=== PATIENT | male | born 1950 | race Caucasian/White ===

== ENCOUNTER → 2018-07-08 | Day surgery (SDC) | payer OTHER | LOC: JASU-ENDO 07:09 ==

== ENCOUNTER 2018-12-16 07:58 | Day surgery (SDC) | payer OTHER ==
[2018-12-15 15:39] VITALS: BMI 34.0
[2018-12-16 09:46] VITALS: TEMP 97.4
[2018-12-16 11:17] LABS: BASO % 0.5 % (0-2.0); HEMATOCRIT 38.7 % (35.4-49); HEMOGLOBIN 12.9 GM/dL (11.7-16.9); LYMPH % 17.5 % (8-40); MCH 31.2 pg (25.7-33.7); MCHC 33.3 g/dl (32.0-35.9); MEAN CELL VOLUME 93.6 fl (80-96); MEAN PLT VOLUME 11.3 fl (7.5-11.1); MONO % 5.5 % (3.8-10.2); NEUT % 75.5 % (42.8-82.8); PLATELET COUNT 176 K/MM3 (134-434); RBC 4.14 M/mm3 (4.00-5.60); RDW 14.2 % (11.9-15.9); WHITE BLOOD COUNT 7.5 K/mm3 (4.0-10.0)
[2018-12-16 11:40] LABS: IRON SERUM 111 ug/dL (50-175); TOTAL IRON BINDING CAPACITY 296 ug/dL (250-450)
[2018-12-17 08:49] VITALS: BP 128/69; PULSE 83
--- NOTE | 2018-12-18 15:34 | PATH ---
Surgical Pathology Report Patient Name: HANK ROJAS [facility]. Rec. #: [id number] /Age/Gender: 1950 (Age: 68) / M Account: [id number] Location: [facility]-ENDOSCOPY Taken: 12/16/2018 Received: 12/16/2018 Reported: 12/18/2018 Physicians: Khoi Mitchell D.O. Specimen(s) Received A: DUODENUM, SECOND PORTION AND BULB B: STOMACH BODY C: GE JUNCTION, NODULE AND ULCER D: ENLARGED ANAL PAPILLA Clinical History Anemia Postoperative diagnosis: GE junction ulcer, gastritis, internal hemorrhoids, enlarged anal papilla Final Diagnosis A. DUODENUM, SECOND PORTION AND BULB, BIOPSY: DUODENAL MUCOSA WITHOUT SIGNIFICANT PATHOLOGIC FINDINGS. B. STOMACH, BODY, BIOPSY: GASTRIC BODY MUCOSA WITH MILD CHRONIC GASTRITIS. IMMUNOHISTOCHEMICAL STAIN FOR H. PYLORI IS NEGATIVE. C. GE JUNCTION AND NODULE, BIOPSY: SQUAMOCOLUMNAR MUCOSA WITH MILD TO MODERATE CHRONIC INFLAMMATION AND CHANGES OF MODERATE REFLUX ESOPHAGITIS. NO INTESTINAL METAPLASIA OR DYSPLASIA IDENTIFIED. POLYPOID GASTRIC CARDIAC TYPE MUCOSA WITH MILD CHRONIC GASTRITIS. NO HELICOBACTER-LIKE ORGANISMS IDENTIFIED. D. ENLARGED ANAL PAPILLA, BIOPSY: SCANT SUPERFICIAL FRAGMENTS OF SQUAMOUS EPITHELIUM WITHOUT SIGNIFICANT PATHOLOGIC FINDINGS. Electronically Signed Jada Snyder M.D. Gross Description A. Received in formalin, labeled "biopsy duodenum second portion and bulb" are 3 castro, irregular portions of soft tissue ranging from 0.1-0.4 cm. in greatest dimension. The specimens are submitted in toto in one cassette. B. Received in formalin, labeled "biopsy body of stomach" are 3 castro, irregular portions of soft tissue ranging from 0.2-0.3 cm. in greatest dimension. The specimens are submitted in toto in one cassette. C. Received in formalin, labeled "biopsy GE junction and nodule" are 3 castro, irregular portions of soft tissue ranging from 0.2-0.3 cm. in greatest dimension. The specimens are submitted in toto in one cassette. D. Received in formalin, labeled "biopsy enlarged anal papilla" are 2 castro, irregular portions of soft tissue averaging 0.1 cm. in greatest dimension. The specimens are submitted in toto in one cassette. DL/12/16/2018 saudi/12/16/2018
== END 2018-12-16 11:00 | disposition home or self-care (01) ==
LOC: JASU-ENDO 07:58
PROVIDERS: ATTEND Internal Medicine Gastroenterology
PROC: 0DB98ZX Excision of Duodenum, Via Natural or Artificial Opening Endoscopic, Diagnostic (ICD-10-PCS; 2018-12-16)
PROC: 0DB68ZX Excision of Stomach, Via Natural or Artificial Opening Endoscopic, Diagnostic (ICD-10-PCS; 2018-12-16)
PROC: 0DB48ZX Excision of Esophagogastric Junction, Via Natural or Artificial Opening Endoscopic, Diagnostic (ICD-10-PCS; 2018-12-16)
PROC: 0DBP8ZX Excision of Rectum, Via Natural or Artificial Opening Endoscopic, Diagnostic (ICD-10-PCS; principal; 2018-12-16 09:00)
DX: Z12.11 Encounter for screening for malignant neoplasm of colon (principal); K62.89 Other specified diseases of anus and rectum; K22.10 Ulcer of esophagus without bleeding; K21.9 Gastro-esophageal reflux disease without esophagitis; I10 Essential (primary) hypertension; E78.00 Pure hypercholesterolemia, unspecified; Z85.46 Personal history of malignant neoplasm of prostate; Z92.3 Personal history of irradiation
CPT/HCPCS: 36415; 82728; 83540; 83550; 85025

== ENCOUNTER 2019-03-03 08:05 | Day surgery (SDC) | payer OTHER ==
[2019-03-03 08:44] VITALS: BMI 34.0
[2019-03-03 09:51] VITALS: TEMP 98.3
[2019-03-03 10:21] VITALS: BP 123/86; PULSE 93
--- NOTE | 2019-03-04 14:48 | PATH ---
Surgical Pathology Report Patient Name: HANK ROJAS [facility]. Rec. #: [id number] /Age/Gender: 1950 (Age: 68) / M Account: [id number] Location: [facility]-ENDOSCOPY Taken: 03/03/2019 Received: 03/03/2019 Reported: 03/04/2019 Physicians: Khoi Mitchell D.O. Specimen(s) Received A: ANTRUM/BODY B: GE JUNCTION Clinical History Anemia Postoperative diagnosis: Gastritis Final Diagnosis A. STOMACH, ANTRUM/BODY, BIOPSY: GASTRIC MUCOSA WITH MILD CHRONIC GASTRITIS. IMMUNOHISTOCHEMICAL STAIN FOR H. PYLORI IS NEGATIVE. B. GE JUNCTION, BIOPSY: SQUAMOCOLUMNAR MUCOSA WITH MODERATE ACUTE AND CHRONIC INFLAMMATION, CHANGES OF MODERATE TO SEVERE REFLUX ESOPHAGITIS, AND FOCAL EROSION. NO INTESTINAL METAPLASIA OR DYSPLASIA IDENTIFIED. Electronically Signed Jada Snyder M.D. Gross Description A. Received in formalin, labeled "biopsy antrum/body" are 5 castro, irregular portions of soft tissue ranging from 0.1-0.4 cm. in greatest dimension. The specimens are submitted in toto in one cassette. B. Received in formalin, labeled "biopsy GE junction" is a castro, irregular portion of soft tissue measuring 0.3 cm. in greatest dimension. The specimen is submitted in toto in one cassette. 03/03/2019 saudi03/03/2019
== END 2019-03-03 10:25 | disposition home or self-care (01) ==
LOC: JASU-ENDO 08:05
PROVIDERS: ATTEND Internal Medicine Gastroenterology
PROC: 0DB68ZX Excision of Stomach, Via Natural or Artificial Opening Endoscopic, Diagnostic (ICD-10-PCS; 2019-03-03)
PROC: 0DB48ZX Excision of Esophagogastric Junction, Via Natural or Artificial Opening Endoscopic, Diagnostic (ICD-10-PCS; principal; 2019-03-03 09:00)
DX: K22.10 Ulcer of esophagus without bleeding (principal); K29.70 Gastritis, unspecified, without bleeding; D64.9 Anemia, unspecified; I10 Essential (primary) hypertension
CPT/HCPCS: 88305-TC; 88342-TC